=== PATIENT | female | born 1965 | race Two or more races ===

== ENCOUNTER 2020-04-26 08:43 | Outpatient (CLI) | payer OTHER ==
[~2020-04-26 08:43] MED LIST: DIOVAN160 M1 PO; TROPOL
== END 2020-04-26 09:10 | disposition home or self-care (01) ==
LOC: SONOGRAMA 08:43
PROVIDERS: ATTEND Pathology Anatomic Pathology & Clinical Pathology
DX: E04.2 Nontoxic multinodular goiter (principal)